=== PATIENT | male | born 1975 | race Caucasian/White ===

== ENCOUNTER 2017-10-28 15:04 | Emergency (ER) | payer OTHER, BC ==
[~2017-10-28] VITALS: Ht 182.9 cm; Wt 129.3 kg
[~2017-10-28 15:04] MED LIST: DOXY100C2 PO
[2017-10-28 15:26] VITALS: BP 175/115
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
[2017-10-28 16:10] LABS: BILIRUBIN,URINE NEGATIVE (NEG); GLUCOSE,URINE NEGATIVE (NEG); NITRITE,URINE NEGATIVE (NEG); PROTEIN,URINE NEGATIVE (NEG-TRACE); UROBILINOGEN,URINE 0.2 mg/dL (0.2 mg/dL)
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
[2017-10-28 16:18] LABS: BACTERIA,URINE 0 /HPF (0-FEW); RBC,URINE 0 /HPF (0-2); SQUAMOUS EPITHELIAL CELL,UR OCC /LPF; WBC,URINE 0 /HPF (0-4)
[2017-10-28] MEDS ORDERED: CYCL10TA2 PO (16:25)
[2017-10-28] MEDS ORDERED: IBUP-1060 PO (16:25)
== END 2017-10-28 16:31 | disposition home or self-care (01) ==
LOC: ER 15:04
DX: S16.1XXA Strain of muscle, fascia and tendon at neck level, initial encounter (principal); I10 Essential (primary) hypertension; V49.49XA Driver injured in collision with other motor vehicles in traffic accident, initial encounter; Y93.89 Activity, other specified; Y99.8 Other external cause status; Y92.488 Other paved roadways as the place of occurrence of the external cause
CPT/HCPCS: 72125; 81001; 99285-25